=== PATIENT | female | born 1950 | race Caucasian/White ===

== ENCOUNTER 2019-04-25 00:12 | Inpatient (IN) | payer MEDICARE ==
[~2019-04-25] VITALS: Ht 160 cm; Wt 81.5 kg
--- NOTE | ~2019-04-25 | HEMODYNAMI ---
PATIENT:DENISE HUNG MEDICAL RECORD: [id number] : 48 LOCATION:[facility] D213 ADMISSION DATE: 04/25/19 Generatedon:04/26/20197:59 Patient name: DENISE HUNG Patient #: [id number] : 1950 Date of study: 04/26/2019 Page: Of Hemodynamic Procedure Report Patient Data Patient Demographics Procedure consent was obtained First Name: DENISE Gender: Female Last Name: ANABELL : 1950 Patient #: [id number] Age: 69 year(s) Race: SSN: [id number] Additional ID: [id number] Contact details [address]: [address] [place] [address] State: [place] City: [place] Zip code: [address] Past Medical History History of disease Date Diagnosis Comments CAD Allergies Allergen Reaction Date Comments Reported Other allergy 04/26/2019 INFLUENZA VIRUS VACCINES, SHRIMP Admission Admission Data Admission Date: 04/25/2019 Admission Time: 2:01 Arrival Date: 04/25/2019 Arrival Time: 2:01 Admit Source: Other Insurance Payor: Medicare Room #: D.2132 [facility] #: [id number] Height (in.): 62.99 BSA: 1.84 (m2) Height (cm.): 160 BMI: 31.64 (kg/m2) Weight (lbs.): 178.58 Weight (kg.): 81 Lab Results Lab Result Date: 04/25/2019 Lab Result Time: 0:00 Biochemistry Name Units Result Min Max BUN mg/dl 18 --(---*)-- 7 18 Creatinine mg/dl 1 --(--*-)-- 0.6 1.3 eGFR ml/min 58 *-(----)-- 90 120 NONAFRICAN CBC Name Units Result Min Max Hemoglobin g/dl 13.5 --(*---)-- 13.5 17.5 Procedure Procedure Types Cath Procedure Diagnostic Procedure C Coronaries only FFR/IVUS FFR Initial Sedation Charges Moderate Sedation up to 15 minutes PCI Procedure Coronary Stent Coronary Stent Initial x2 Hemochron ACT Test Procedure Description Procedure Date Procedure Date: 04/26/2019 Procedure Start Time: 7:35 Procedure End Time: 7:52 Procedure Staff Name Function Shane Dotson RN Nurse Keon Dangelo MD Performing Physician Laura Gomez RT Scrub Steffany Marr RT Monitor Cathleen Guy RN Armor Senior Sergeant Procedure Data Cath Procedure Fluoroscopy Diagnostic fluoroscopy Total fluoroscopy Time: 3.8 time: 3.8 min min Diagnostic fluoroscopy Total fluoroscopy dose: 291 dose: 291 mGy mGy Contrast Material Contrast Material Type Amount (ml) Isovue 370 58 Entry Location Entry Primary Successful Side Size Upsize Upsize Entry Closure Succes sful Closure Location (Fr) 1 (Fr) 2 (Fr) Remarks Device Remarks Femoral Right 6 Fr Exoseal artery Short Estimated blood loss: 10 ml Diagnostic catheters Device Type Used For End Catheter Placement DIAGNOSTIC JL 4.0 5Fr Procedure catheter ([id number]) Procedure Complications No complications Procedure Medications Medication Administration Route Dosage 0.9% NaCl I.V. 100 ml/hr Oxygen etCO2 Nasal cannula 2 l/min Heparin Flush Bag added to field 2 bags (1000units/500ml NS) Lidocaine 2% added to field 20 Plavix P.O. 75 mg Versed I.V. 1 mg Fentanyl I.V. 50 mcg Versed I.V. 1 mg Fentanyl I.V. 50 mcg Heparin Bolus I.V. 4000 units Hemodynamics Rest BSA: 1.84 (m2) HGB: 13.5 (g/dl) O2 Consumption: Estimated: 182.68 (ml/min) O2 Co nsumption indexed: Estimated:99.28 (ml/min/m) Heart Rate: 89 (bpm) Snapshots Pre Cath Intra NCS Post Cath Vital Signs Time Heart Resp SPO2 etCO2 NIBP (mmHg) Rhythm Pain Sedation Rate (ipm) (%) (mmHg) Status Level (bpm) 7:24:22 88 18 97 0 141/84(113) NSR 0 (11) 10(A) , No pain 7:28:49 86 16 95 22.3 141/83(119) NSR 0 (11) 10(A) , No pain 7:33:15 81 15 92 14.9 135/73(102) NSR 0 (11) 10(A) , No pain 7:37:41 80 15 94 29 131/74(107) NSR 0 (11) 10(A) , No pain 7:42:05 81 14 94 17.9 130/72(105) NSR 0 (11) 9(A) , No pain 7:46:29 83 12 94 9.6 133/75(106) NSR 0 (11) 9(A) , No pain 7:50:52 85 14 98 29.8 133/80(110) NSR 0 (11) 9(A) , No pain 7:59:34 96 29.8 Aborted NSR 0 (11) 9(A) , No pain Medications Time Medication Route Dose Verified Delivered Reason Notes Effectiveness by by 7:29:36 0.9% NaCl I.V. 100 Shane Shane Per physician ml/hr Mauri Dotson RN RN 7:29:45 Oxygen etCO2 2 Shane Shane for low 02 sats Nasal l/min Mauri Dotson cannula RN RN 7:29:57 Heparin Flush added 2 Shane Shane used for Bag to bags [place] Dotson procedure (1000units/500ml RN RN NS) 7:30:06 Lidocaine 2% added 20ml Shane Shane for local to vial Mauri Dotson anesthetic field RN RN 7:30:17 Plavix P.O. 75 mg Shane Shane for [place] Dotson antiplatelet RN RN therapy 7:34:18 Versed I.V. 1 mg Shane Shane for sedation Mauri Dotson RN RN 7:34:28 Fentanyl I.V. 50 Shane Shane for sedation mcg Mauri Dotson RN RN 7:36:57 Versed I.V. 1 mg Shane Shane for sedation Mauri Dotson RN RN 7:37:03 Fentanyl I.V. 50 Shane Shane for sedation mcg Mauri Dotson RN RN 7:39:44 Heparin Bolus I.V. 4000 Shane Shane for units Mauri Dotson anticoagulation RN safety aide Log Time Note 6:58:12 Patient Height : 62.99 inches 6:58:12 Patient Weight : 178.58 lbs 6:58:23 H&P Date Dictated: 04/26/2019 New H&P dictated by physician.. 7:00:27 Risk of Mortality: .1 7:00:32 Risk of blood transfusion: 1.6 7:00:34 Risk of ANICETO: 1.8 7:00:44 Procedure Status Urgent Heart Cath (IP). 7:00:44 Time tracking: Regular hours (M-F 7:00 - 5:00) 7:00:47 Plan of Care:Hemodynamics will remain stable., Cardiac rhythm will remain stable., Comfort level will be maintained., Respiratory function will remain adequate., Patient/ family verbilizes understanding of procedure., Procedure tolerated without complication., Recovers from procedure without complications.. 7:00:48 Signed procedure consent form obtained from patient. 7:01:52 Patient allergic to Other allergyINFLUENZA VIRUS VACCINES, SHRIMP 7:03:57 Stress Test: no; N/A PCI 7:07:10 Shane Dotson RN sent for patient. Start room use. 7:21:12 Patient received from Med II to CCL 1 Alert and oriented. Tansferred to table in Supine position. 7:21:13 Warm blankets applied, and trae hugger turned on for patient comfort. 7:21:14 Correct patient and procedure confirmed by team. 7:21:14 ECG and BP/O2 sat monitors applied to patient. 7:21:27 Vital chart was started 7:21:28 Baseline sample Acquired. 7:21:32 Rhythm: sinus rhythm 7:21:39 Full Disclosure recording started 7:21:47 Pre-op teaching completed and patient verbalized understanding. 7:21:48 Pre-procedure instructions explained to patient. 7:21:53 Family in patients room. 7:21:54 Patient NPO since Midnight. 7:22:19 Is the patient allergic to Iodine/contrast media? No. 7:22:22 Is patient on blood thinner?Yes 7:22:24 ACC The patient was administered the following blood thiners within the last 24 hours: ACCPlavix 7:23:46 Patient diabetic? No. 7:24:00 Previous problem with sedation/anesthesia? No ? 7:24:01 Snore? Yes 7:24:04 Sleep apnea? No 7:24:05 Deviated septum? No 7:24:06 Opens mouth fully? Yes 7:24:08 Sticks out tongue? Yes 7:24:10 Airway obstruction? No ? 7:24:11 Dentures? No ? 7:24:13 Pre procedure: right dorsailis pedis pulse 2+ Normal; easily identifiable; not easily obliterated 7:24:18 Patient pain scale 0/10 ?. 7:24:22 IV patent on arrival in left antecubital with 0.9% NaCl at [facility]. 7:24:27 Lab results completed and on chart. 7:24:30 Right groin area was prepped with chlora-prep and draped in sterile fashion 7:24:31 Alarms reviewed by R. N. 7:24:31 Sharps counted by scrub and verified by R.N. 7:24:36 Use device set CATH PACK 7:24:37 ACIST Syringe (43396) opened to sterile field. 7:24:37 ACIST Hand Control (68792) opened to sterile field. 7:24:38 ACIST Manifold (34297) opened to sterile field. 7:24:38 Medline Cath Pack ([id number]) opened to sterile field. 7:24:38 Bag Decanter (2002S) opened to sterile field. 7:24:39 EMERALD Guide Wire (502-329) opened to sterile field. 7:24:50 SHEATH 6FR [place] (WJS771) opened to sterile field. 7:24:51 INFLATOR Merit BasixCompak (TU5910) opened to sterile field. 7:24:51 CHOICE PT Extra Support 182cm wire ([id number]) opened to sterile field. 7:29:36 0.9% NaCl 100 ml/hr I.V. was administered by Shane Dotson RN; Per physician; Verbal order read back and verified. 7:29:45 Oxygen 2 l/min etCO2 Nasal cannula was administered by Shane Dotson RN; for low 02 sats; Verbal order read back and verified. 7:29:57 Heparin Flush Bag (1000units/500ml NS) 2 bags added to field was administered by Shane Dotson RN; used for procedure; Verbal order read back and verified. 7:30:06 Lidocaine 2% 20ml vial added to field was administered by Shane Dotson RN; for local anesthetic; Verbal order read back and verified. 7:30:17 Plavix 75 mg P.O. was administered by Shane Dotson RN; for antiplatelet therapy; Verbal order read back and verified. 7:30:29 --------ALL STOP TIME OUT------ 7:30:30 Final Timeout: patient, procedure, and site verified with staff and physician. All members of the team are in agreement. 7:30:33 Right groin site verified by team. 7:30:37 Fire Safety Assessment: A--An alcohol-based skin anteseptic being used preoperatively., C--Open oxygen or nitrous oxide is being used., D--An ESU, laser, or fiber-optic light is being used. 7:30:39 Physical assessment completed. ASA score P 2 - A patient with mild systemic disease as per Shane Dotson RN. 7:31:02 3a) 45-59 Moderately reduced kidney function. 7:31:05 Maximum allowable contrast dose (3.7 X eGFR X 0.75)? ml. 7:31:07 Sedation plan: IV Moderate Sedation Medication:Versed, Fentanyl 7:34:18 Versed 1 mg I.V. was administered by Shane Dotson RN; for sedation; Verbal order read back and verified. 7:34:28 Fentanyl 50 mcg I.V. was administered by Shane Dotson RN; for sedation; Verbal order read back and verified. 7:35:14 Procedure started. 7:35:17 Zero performed for pressure channel P1 7:35:33 Zero performed for pressure channel P1 7:35:39 Zero performed for pressure channel P1 7:35:56 Local anesthetic to right femoral artery with Lidocaine 2% by Shane Dotson RN.INITIAL ACCESS ONLY 7:36:13 A 6 Fr Short sheath was inserted into the Right Femoral artery 7:36:44 A DIAGNOSTIC JL 4.0 5Fr catheter ([id number]) was advanced over the wire and used for Procedure. 7:36:54 Procedure type changed to Cath procedure, Diagnostic procedure, LHC, Coronaries only, FFR/IVUS, FFR Initial, Sedation Charges, Moderate Sedation up to 15 minutes, PCI procedure, Coronary Stent, Coronary Stent Initial x2, Hemochron ACT Test 7:36:57 Versed 1 mg I.V. was administered by Shane Dotson RN; for sedation; Verbal order read back and verified. 7:37:03 Fentanyl 50 mcg I.V. was administered by Shane Lorigan RN; for sedation; Verbal order read back and verified. 7:37:28 LCA angiography performed. 7:37:33 Catheter removed. 7:38:15 Pre PCI Site: [place] LAD has 75% stenosis. 7:39:02 GUIDE 6FR XBLAD 3.5 catheter ([id number]) opened to sterile field. 7:39:07 6 Fr XBLAD 3.5 guide catheter was inserted over the wire 7:39:14 CHOICE ES 182 wire advanced. 7:39:16 Wire advanced across lesion. 7:39:44 Heparin Bolus 4000 units I.V. was administered by Shane Dotson RN; for anticoagulation; Verbal order read back and verified. 7:40:34 Place stent Inflation Number: 1 A KADE RX 3.5 x 08 stent ([id number]) was prepped and advanced across the Prox LAD . The stent was deployed at 13 LAUREN for 0:00 (min:sec) . 7:40:36 Stent catheter was removed intact over wire. 7:40:37 Wire removed. 7:40:38 Guide catheter removed. 7:41:10 GUIDE 6FR AR 1.0 catheter ([id number]) opened to sterile field. 7:41:34 Dowling Verrata Plus pressure wire (32727E) opened to sterile field. 7:41:41 6 Fr AR 1 guide catheter was inserted over the wire 7:42:15 FFR/IFR wire advanced. 7:42:15 Wire advanced across lesion. 7:43:08 RCA lesion measured at .48 with IFR 7:43:43 Pre PCI Site: [place] RCA has 70% stenosis. 7:46:00 Place stent Inflation Number: 1 A KADE RX 3.0 x 18 stent ([id number]) was prepped and advanced across the Prox RCA . The stent was deployed at 13 LAUREN for 0:00 (min:sec) . 7:46:46 Stent catheter was removed intact over wire. 7:46:47 Wire removed. 7:46:47 Guide catheter removed. 7:47:17 EXOSEAL 6Fr (EX600) opened to sterile field. 7:47:30 Sheath removed intact; hemostasis achieved with Exoseal to the Right Femoral artery. 7:48:18 Procedure ended.(Physican Out) 7:48:29 Fluoroscopy time 03.80 minutes. 7:48:36 Flurop Dose total: 291 7:48:36 Fluoroscopy dose: 291 mGy 7:48:40 Dose Area Product 71792 mGy/cm. 7:48:46 Contrast amount:Isovue 370 58ml. 7:48:49 Maximum allowable dose exceeded? No. 7:48:50 Sharps counted by scrub and verified by R.N. 7:48:55 Post-op/insertion site Right Femoral artery dressed using a 4 x 4 and Tegaderm. 7:48:59 Post-procedure physical assessment completed. ASA score P 2 - A patient with mild systemic disease as per Keon Dangelo MD. 7:49:07 Post procedure rhythm: unchanged. 7:49:08 Estimated blood loss: 10 ml 7:50:02 Post procedure instruction explained to patient.Patient verbalizes understanding. 7:50:03 Patient needs reinforcement of post procedure teaching. 7:51:58 Procedure and supply charges have been captured, reviewed, submitted and are correct. 7:52:02 Procedure Complication : No complications 7:52:04 Vital chart was stopped 7:52:05 [facility] Findings: MVD- PCI performed (see procedure note) 7:52:06 Operative report dictated upon procedure completion. 7:52:07 See physician's report for complete and final results. 7:52:08 Report given to Med II. 7:52:11 Patient transfered to Med II with Bed. 7:52:12 ACT drawn and resulted at (High) out of range seconds. (normal therapeutic range 180-240 seconds). 7:52:13 Procedure ended. 7:52:13 Full Disclosure recording stopped 7:52:21 ACC-PCI Only Patient was given prescriptions, or instructed by Keon Dangelo MD to start/continue the following medications upon discharge: Plavix 7:53:51 End room use (Document Last) 7:54:42 End room use (Document Last) 7:55:23 End room use (Document Last) Intervention Summary Intervention Notes Time ActionType Lesion and Equipment Used Action# Pressure Duration Attributes 7:40:34 Place stent Prox LAD KADE RX 3.5 x 1 13 00:00 08 stent ([id number]) 7:46:00 Place stent Prox RCA KADE RX 3.0 x 1 13 00:00 18 stent ([id number]) Device Usage Item Name Manufacture Quantity Catalog Number Hospital Part Current Minimal Lot# / Charge Number Stock Stock Serial# Code ACIST Syringe Acist 1 06772 267319 023387 236209 20 (68016) Medical Systems Inc ACIST Hand Acist 1 39080 272663 292069 785108 5 Control Medical (08321) Systems Inc ACIST Manifold Acist 1 61493 232209 730857 158811 5 (24477) Medical Systems Inc Medline Cath Medline 1 [id number] 640672 92918 347394 5 Pack ([id number]) Bag Decanter Microtek 1 594399 52698 164994 5 () Medical Inc. EMERALD Guide Cardinal 1 502-455 727509 593989 429477 5 Wire (502-455) Health SHEATH 6FR Terumo 1 HEK581 836552 397598 357066 40 [place] (OCO365) INFLATOR Merit Merit 1 PY6988 173254 709029 466870 15 [employer] Power GroupLogan Regional HospitalDailyDeal (MY8033) CHOICE PT [place] 1 [id number] 315446 868719 530758 5 Extra Support Scientific 182cm wire ([id number]) DIAGNOSTIC JL Cardinal 1 [id number] 040981 548559 481254 10 4.0 5Fr Health catheter (647450J) GUIDE 6FR Cardinal 1 [id number] 733958 273061 509913 10 XBLAD 3.5 Health catheter (41337684) KADE RX 3.5 x Medtronic 1 [id number] 424786 9354007 162430 5 [id number] 08 stent ([id number]) GUIDE 6FR AR Medtronic 1 [id number] 229505 58714 811312 1 1.0 catheter (MP1WR15) Dowling Dowling 1 01784E 723729 528591562 415489 5 Verrata Plus pressure wire (64949U) KADE RX 3.0 x Medtronic 1 [id number] 452909 2649746 696781 5 [id number] 18 stent ([id number]) EXOSEAL 6Fr Cardinal 1 EX600 486939 598332 348191 10 (EX600) Health Signature Audit [place] Switch Stage Time Signature Unsigned Intra-Procedure 04/26/2019 Steffany Marr 7:54:42 AM RT(R) Intra-Procedure 04/26/2019 Shane 7:55:23 AM Mauri LARA Intra-Procedure 04/26/2019 Keon Dangelo 7:59:42 AM [id number] [place] [address]
--- NOTE | ~2019-04-25 | HEMODYNAMI ---
PATIENT:DENISE HUNG MEDICAL RECORD: [id number] : 48 LOCATION:[facility] D.2132 ADMISSION DATE: 04/25/19 Generatedon:04/25/20199:41 Patient name: DENISE HUNG Patient #: [id number] : 1950 Date of study: 04/25/2019 Page: Of Hemodynamic Procedure Report Patient Data Patient Demographics Procedure consent was obtained First Name: DENISE Gender: Female Last Name: ANABELL : 1950 Patient #: [id number] Age: 69 year(s) Race: SSN: [id number] Additional ID: [id number] Contact details Address: [address] [place] [address] State: [place] City: [place] Zip code: [address] Admission Admission Data Admission Date: 04/25/2019 Admission Time: 2:01 Arrival Date: 04/25/2019 Arrival Time: 2:01 Admit Source: Other Insurance Payor: Medicare Room #: D.2132 [facility] #: [id number] Height (in.): 62.99 BSA: 1.84 (m2) Height (cm.): 160 BMI: 31.64 (kg/m2) Weight (lbs.): 178.58 Weight (kg.): 81 Lab Results Lab Result Date: 04/25/2019 Lab Result Time: 0:00 Biochemistry Name Units Result Min Max BUN mg/dl 18 --(---*)-- 7 18 Creatinine mg/dl 1 --(--*-)-- 0.6 1.3 eGFR ml/min 58 *-(----)-- 90 120 NONAFRICAN CBC Name Units Result Min Max Hemoglobin g/dl 13.5 --(*---)-- 13.5 17.5 Procedure Procedure Types Cath Procedure Diagnostic Procedure LHC LH w/Coronaries FFR/IVUS FFR Initial Sedation Charges Moderate Sedation up to 30 minutes PCI Procedure Coronary Stent Coronary Stent Initial Hemochron ACT Test Procedure Description Procedure Date Procedure Date: 04/25/2019 Procedure Start Time: 9:10 Procedure Staff Name Function Guadalupe Bello RT Monitor Ketan Traore RN Car Refinisher Keon Dangelo MD Performing Physician Kimber Clay RT Scrub Procedure Data Cath Procedure Fluoroscopy Diagnostic fluoroscopy Total fluoroscopy Time: 2.4 time: 2.4 min min Diagnostic fluoroscopy Total fluoroscopy dose: 350 dose: 350 mGy mGy Contrast Material Contrast Material Type Amount (ml) Isovue 300 51 Entry Location Entry Primary Successful Side Size Upsize Upsize Entry Closure [place] ccessful Closure Location (Fr) 1 (Fr) 2 (Fr) Remarks Device Remarks Radial Right 6 Fr Mechanical artery Short Compression Estimated blood loss: 5 ml Diagnostic catheters Device Type Used For End Catheter Placement DIAGNOSTIC [place] 110cm 5 Multi-vessel Fr catheter ([id number]) Angiography Procedure Complications No complications Procedure Medications Medication Administration Route Dosage Oxygen etCO2 Nasal cannula 2 l/min Lidocaine 2% added to field 20 Heparin Flush Bag added to field 2 bags (1000units/500ml NS) 0.9% NaCl I.V. 100 ml/hr Radial Cocktail I.A. 1 syringe (Verapamil 2mg/Nitro 400mcg/Heparin 1500units) Versed I.V. 1 mg Fentanyl I.V. 50 mcg Versed I.V. 1 mg Fentanyl I.V. 50 mcg Heparin Bolus I.V. 4000 units Integrilin (Bolus I.V. 7.3 ml 2mg/ml) Versed I.V. 1 mg Plavix P.O. 600 mg Hemodynamics Rest BSA: 1.84 (m2) HGB: 13.5 (g/dl) O2 Consumption: Estimated: 179.21 (ml/min) O2 Co nsumption indexed: Estimated:97.4 (ml/min/m) Heart Rate: 84 (bpm) Pressure Samples Time Site Value (mmHg) Purpose Heart Use Rate(bpm) 9:12 LV 79/3,6 Snapshot 52 Snapshots Pre Cath Intra NCS Post Cath Vital Signs Time Heart Resp SPO2 etCO2 NIBP (mmHg) Rhythm Pain Sedation Rate (ipm) (%) (mmHg) Status Level (bpm) 8:57:40 81 14 94 34.8 147/85(120) NSR 0 (11) 10(A) , No pain 9:02:19 79 16 94 37 156/87(121) NSR 0 (11) 10(A) , No pain 9:06:31 80 13 93 36.3 149/83(112) NSR 0 (11) 10(A) , No pain 9:10:36 81 14 95 0 148/89(108) NSR 0 (11) 9(A) , No pain 9:14:46 85 13 96 13.3 136/80(105) NSR 0 (11) 9(A) , No pain 9:18:52 84 12 94 28.2 143/78(98) NSR 0 (11) 9(A) , No pain 9:23:55 88 15 97 17.8 164/100(127) NSR 0 (11) 9(A) , No pain 9:28:05 86 13 95 11.8 165/96(120) NSR 0 (11) 10(A) , No pain 9:32:15 85 13 95 0.7 164/100(126) NSR 0 (11) 10(A) , No pain Medications Time Medication Route Dose Verified Delivered Reason Note s Effectiveness by by 8:57:28 Oxygen etCO2 2 l/min Keon Buffie used for Nasal Loreto Traore RN procedure cannula 8:57:58 Lidocaine 2% added 20ml Keon Keon for local to vial Loreto Dangelo MD anesthetic field 8:58:31 Heparin Flush added 2 bags Keonroberto carlos Herbert used for Bag to Loreto Dangelo MD procedure (1000units/500ml field NS) 8:58:45 0.9% NaCl I.V. 100 Keon Buffie Per physician ml/hr Loreto Traore RN 9:08:46 Versed I.V. 1 mg Keon Buffie for sedation Loreto Traore RN 9:08:52 Fentanyl I.V. 50 mcg Keon Buffie for sedation Loreto Traore RN 9:11:45 Radial Cocktail I.A. 1 Keon Buffie for (Verapamil syringe Loreto Traore RN vasodilation 2mg/Nitro 400mcg/Hepari 9:12:39 Versed I.V. 1 mg Keon Buffie for sedation Loreto Traore RN 9:12:42 Fentanyl I.V. 50 mcg Keon Loaizaie for sedation Loreto Traore RN 9:15:30 Heparin Bolus I.V. 4000 Keon Buffie for veri fied units Loreto Traore RN anticoagulation with dr dangelo 9:18:03 Integrilin I.V. 7.3 ml Keon Aceves for wast ed (Bolus 2mg/ml) Loreto Traore RN antiplatelet 2.7 ml therapy of vial 9:23:14 Versed I.V. 1 mg Keon Aceves for sedation Loreto Traore RN 9:35:02 Plavix P.O. 600 mg Keon Aceves for Loreto Traore RN antiplatelet therapy Procedure Log Time Note 8:24:54 Diagnostic Cath Status : Urgent 8:26:10 Informed consent obtained and on chart 8:29:07 Arrival Date: 04/25/2019 2:01:00 AM 8:30:30 Admit Source: Other 8:30:33 Insurance Payor : Medicare 8:30:52 Patient Height : 62.99 inches 8:30:56 Patient Weight : 178.58 lbs 8:31:58 Lab Result : eGFR NONAFRICAN 58 ml/min 8:31:58 Lab Result : Hemoglobin 13.5 g/dl 8:31:58 Lab Result : BUN 18 mg/dl 8:31:58 Lab Result : Creatinine 1 mg/dl 8:32:19 Procedure Status Urgent Heart Cath (IP). 8:32:25 Kimber LUDWIG(R) sent for patient. Start room use. 8:32:30 Plan of Care:Hemodynamics will remain stable., Cardiac rhythm will remain stable., Comfort level will be maintained., Respiratory function will remain adequate., Patient/ family verbilizes understanding of procedure., Procedure tolerated without complication., Recovers from procedure without complications.. 8:45:26 Patient received from Med II to CCL 2 Alert and oriented. Tansferred to table in Supine position. 8:45:27 Correct patient and procedure confirmed by team. 8:45:27 Warm blankets applied, and trae hugger turned on for patient comfort. 8:45:28 ECG and BP/O2 sat monitors applied to patient. 8:56:33 Vital chart was started 8:56:35 Baseline sample Acquired. 8:56:39 Rhythm: sinus tachycardia 8:56:41 Full Disclosure recording started 8:56:49 H&P Date Dictated: 04/25/2019 New H&P dictated by physician.. 8:56:51 Pre-op teaching completed and patient verbalized understanding. 8:56:51 Pre-procedure instructions explained to patient. 8:56:53 Family in waiting room. 8:56:54 Patient NPO since Midnight. 8:56:57 Is the patient allergic to Iodine/contrast media? No. 8:56:58 Was the patient premedicated? Yes 8:56:59 Is patient on blood thinner?No 8:57:00 Patient diabetic? No. 8:57:02 Previous problem with sedation/anesthesia? No ? 8:57:04 Snore? Yes 8:57:05 Sleep apnea? No 8:57:06 Deviated septum? No 8:57:07 Opens mouth fully? Yes 8:57:08 Sticks out tongue? Yes 8:57:11 Airway obstruction? No ? 8:57:15 Dentures? No ? 8:57:22 Pre procedure: right dorsailis pedis pulse 2+ Normal; easily identifiable; not easily obliterated 8:57:25 Pre procedure: left dorsailis pedis pulse 2+ Normal; easily identifiable; not easily obliterated 8:57:27 Patient pain scale 7/10 ?. 8:57:28 Oxygen 2 l/min etCO2 Nasal cannula was administered by Ketan Traore RN; used for procedure; Verbal order read back and verified. 8:57:45 IV patent on arrival in left antecubital with 0.9% NaCl at [facility]. 8:57:48 Lab results completed and on chart. 8:57:52 Stress Test: no; N/A ? 8:57:55 Risk of Mortality: 0.1 8:57:58 Risk of blood transfusion: 1.6 8:57:58 Lidocaine 2% 20ml vial added to field was administered by Keon Dangelo MD; for local anesthetic; Verbal order read back and verified. 8:58:10 Risk of ANICETO: 1.8 8:58:15 Right Radial & Right Groin area was prepped with chlora-prep and draped in sterile fashion 8:58:16 Alarms reviewed by R. N. 8:58:17 Sharps counted by scrub and verified by R.N. 8:58:27 3a) 45-59 Moderately reduced kidney function. 8:58:31 Heparin Flush Bag (1000units/500ml NS) 2 bags added to field was administered by Keon Dangelo MD; used for procedure; Verbal order read back and verified. 8:58:45 0.9% NaCl 100 ml/hr I.V. was administered by Ketan Traore RN; Per physician; Verbal order read back and verified. 8:58:56 Maximum allowable contrast dose (3.7 X eGFR X 0.75)160 ml. 9:07:22 Physician arrived 9:07:23 --------ALL STOP TIME OUT------ 9:07:24 Final Timeout: patient, procedure, and site verified with staff and physician. All members of the team are in agreement. 9:07:26 Right Radial & Right Groin site verified by team. 9:07:29 Fire Safety Assessment: A--An alcohol-based skin anteseptic being used preoperatively., C--Open oxygen or nitrous oxide is being used., D--An ESU, laser, or fiber-optic light is being used. 9:07:32 Physical assessment completed. ASA score P 2 - A patient with mild systemic disease as per Keon Dangelo MD. 9:07:35 Sedation plan: IV Moderate Sedation Medication:Versed, Fentanyl 9:07:42 Use device set Radial Dx or PCI 9:07:44 Medline Cath Pack ([id number]) opened to sterile field. 9:07:44 ACIST Syringe (21263) opened to sterile field. 9:07:45 ACIST Hand Control (80587) opened to sterile field. 9:07:45 Bag Decanter (2001S) opened to sterile field. 9:07:46 Tegaderm 4 x 4 (1626W) opened to sterile field. 9:07:46 ACIST Manifold (94343) opened to sterile field. 9:07:47 MBrace Wrist Support ([id number]) opened to sterile field. 9:07:50 SHEATH 6FR RAIN (8083768) opened to sterile field. 9:07:51 EMERALD Guide Wire (401-327) opened to sterile field. 9:08:46 Versed 1 mg I.V. was administered by Ketan Traore RN; for sedation; Verbal order read back and verified. 9:08:52 Fentanyl 50 mcg I.V. was administered by Ketan Traore RN; for sedation; Verbal order read back and verified. 9:10:51 Procedure started. 9:10:55 Local anesthetic to right radial artery with Lidocaine 2% by Keon Dangelo MD.INITIAL ACCESS ONLY 9:11:03 A 6 Fr Short sheath was inserted into the Right Radial artery 9:11:19 A DIAGNOSTIC [place] 110cm 5 Fr catheter (646367) was advanced over the wire and used for Multi-vessel Angiography. 9:11:45 Radial Cocktail (Verapamil 2mg/Nitro 400mcg/Heparin 1500units) 1 syringe I.A. was administered by Ketan Traore RN; for vasodilation; Verbal order read back and verified. 9:12:17 LV hemodynamics recorded. 9:12:18 LV gram done using ZAVALA 9:12:21 Injector settings: Ml/sec: 5, Volume: 15, 9:12:27 EF : 60 % 9:12:32 RCA angiography performed. 9:12:35 Injector settings: Ml/sec: 3, Volume: 6, 9:12:39 Versed 1 mg I.V. was administered by Ketan Traore RN; for sedation; Verbal order read back and verified. 9:12:42 Fentanyl 50 mcg I.V. was administered by Ketan Traore RN; for sedation; Verbal order read back and verified. 9:14:03 Catheter removed. 9:14:10 GUIDE 6FR XBC 3 ([id number]) opened to sterile field. 9:14:18 LCA angiography performed. 9:14:21 Injector settings: Ml/sec: 3, Volume: 6, 9:14:48 INFLATOR Merit BasixCompak (KP9482) opened to sterile field. 9:14:49 ACCDominant side:Right 9:14:49 [place] Verrata Plus pressure wire (26114S) opened to sterile field. 9:15:10 Proceeding to intervention. 9:15:18 FFR/IFR wire advanced. 9:15:20 Baseline FFR 1. 9:15:30 Heparin Bolus 4000 units I.V. was administered by Ketan Traore RN; for anticoagulation; verified with dr dangelo Verbal order read back and verified. 9:15:49 GUIDE 6FR AR 2.0 catheter ([id number]) opened to sterile field. 9:16:42 Wire advanced across lesion. 9:17:38 pLAD lesion measured at 0.87 with IFR 9:17:55 ACC Pre-intervention JC Flow is 3. 9:18:01 Pre PCI Site: [place] pLAD has 80% stenosis. 9:18:03 Integrilin (Bolus 2mg/ml) 7.3 ml I.V. was administered by Ketan Traore RN; for antiplatelet therapy; wasted 2.7 ml of vial Verbal order read back and verified. 9:19:28 Place stent Inflation Number: 1 A KADE RX 2.75 x 18 stent ([id number]) was prepped and advanced across the Prox LAD 80. The stent was deployed at 15 LAUREN for 0:10 (min:sec) 0. 9:23:14 Versed 1 mg I.V. was administered by Ketan Tarore RN; for sedation; Verbal order read back and verified. 9:23:35 Wire removed. 9:23:35 Stent catheter was removed intact over wire. 9:23:36 Guide catheter removed. 9:24:31 Malfuntion with fluoroscopy; attempting to reboot room 9:24:58 ACT drawn and resulted at 233 seconds. (normal therapeutic range 180-240 seconds). 9:33:26 Full Disclosure recording stopped 9:35:02 Plavix 600 mg P.O. was administered by Ketan Traore RN; for antiplatelet therapy; Verbal order read back and verified. 9:35:55 ACC Post-intervention JC Flow is 3. 9:36:00 Post PCI Site: [place] pLAD has 0% stenosis. 9:36:34 ZEPHYR REGULAR TR BAND (679341) opened to sterile field. 9:36:43 Sheath removed intact; hemostasis achieved with Mechanical Compression to the Right Radial artery. 9:36:45 Procedure ended.(Physican Out) 9:37:09 Fluoroscopy time 02.40 minutes. 9:37:14 Fluoroscopy dose: 350 mGy 9:37:14 Flurop Dose total: 350 9:37:19 Dose Area Product 15304 mGy/cm. 9:37:23 Contrast amount:Isovue 300 51ml. 9:37:34 Maximum allowable dose exceeded? No. 9:37:35 Sharps counted by scrub and verified by R.N. 9:37:38 [place] band inflated with 10cc of air. 9:37:39 Insertion/operative site no bleeding no hematoma. 9:37:44 Post right radial artery:stable 9:37:45 Post Procedure Pulses reassessed and unchanged 9:37:47 Post procedure rhythm: unchanged. 9:37:50 Estimated blood loss: 5 ml 9:37:52 Post procedure instruction explained to patient.Patient verbalizes understanding. 9:37:52 Patient needs reinforcement of post procedure teaching. 9:38:44 Procedure type changed to Cath procedure, Diagnostic procedure, LHC, C w/Coronaries, FFR/IVUS, FFR Initial, Sedation Charges, Moderate Sedation up to 30 minutes, PCI procedure, Coronary Stent, Coronary Stent Initial, Hemochron ACT Test 9:38:45 Procedure and supply charges have been captured, reviewed, submitted and are correct. 9:38:49 Procedure Complication : No complications 9:38:54 [facility] Findings: MVD- PCI performed (see procedure note) 9:38:56 Operative report dictated upon procedure completion. 9:38:56 See physician's report for complete and final results. 9:38:58 Report given to Pre/Post Procedure Room. 9:39:01 Patient transfered to Pre/Post Procedure Room with Stretcher. 9:39:17 ACC-PCI Only Patient was given prescriptions, or instructed by Keon Dangelo MD to start/continue the following medications upon discharge: Plavix 9:39:18 End room use (Document Last) 9:40:50 End room use (Document Last) 9:41:32 End room use (Document Last) Intervention Summary Intervention Notes Time ActionType Lesion and Equipment Used Action# Pressure Duration Attributes 9:19:28 Place stent Prox LAD KADE RX 2.75 x 1 15 00:10 18 stent ([id number]) Device Usage Item Name Manufacture Quantity Catalog Hospital Part Current Minimal Lot# / Number Charge Number Stock Stock Serial# Code ACIST Syringe Acist 1 72352 207053 931635 504672 20 (76434) Medical Systems Inc Medline Cath Medline 1 [id number] 548942 50735 954890 5 Pack ([id number]) Bag Decanter Microtek 1 689032 87249 050406 5 () Medical Inc. ACIST Hand Acist 1 05996 379610 725215 147976 5 Control Medical (56904) Systems Inc ACIST Manifold Acist 1 72765 311399 011313 271559 5 (12323) Medical Systems Inc Tegaderm 4 x 4 3M 1 1626W 370315 774928 311992 5 (1626W) MBrace Wrist Advanced 1 140-0250-00 867078 11859 948932 5 Support Vascular (866087042) Dynamics SHEATH 6FR Cardinal 1 2797192 382203 9599133 912162 5 RAIN (3426034) Health EMERALD Guide Cardinal 1 502455 472136 953588 339587 5 Wire (845-437) Health DIAGNOSTIC Terumo 1 40-5013 134894 703070 858849 5 [place] 110cm 5 Fr catheter (042897) GUIDE 6FR XBC Cardinal 1 [id number] 015503 06939 430419 5 3 (01222175) Health INFLATOR Merit Merit 1 WU4987 777852 826025 101873 [facility] Medical (VQ3381) [place] 1 23368J 132463 562560097 459832 5 Verrata Plus pressure wire (06558J) GUIDE 6FR AR Medtronic 1 [id number] 149419 55345 045117 1 2.0 catheter (DW2RN55) KADE RX 2.75 x Medtronic 1 [id number] 079878 9827847 539611 5 [id number] 18 stent ([id number]) ZEPHYR REGULAR Cardinal 1 333630 369136 8811668 220505 5 TR [facility] Ingenium Golf (236628) Signature Audit [place] Stage Time Signature Unsigned Intra-Procedure 04/25/2019 Guadalupe Monsalve 9:40:50 AM RT(R) Intra-Procedure 04/25/2019 Ketan Traore RN 9:41:32 AM Intra-Procedure 04/25/2019 Keon Dangelo 9:41:47 AM Signatures Monitor : Guadalupe Monsalve RT Signature : Date : Time : Performing Physician : Signature : Keon Dangelo MD Date : Time : [address] [place] [address]
[2019-04-25 00:34] LABS: BASOPHILS 0.1 % (0-2); HEMATOCRIT 40.7 % (36.0-48.0); HEMOGLOBIN 13.5 g/dL (12-16); IMMATURE GRANULOCYTES 0.7 % (0-5); LYMPHOCYTES 21.9 % (15-50); MCH 29.5 pg (26.0-34.0); MCHC 33.2 g/dL (31.0-37.0); MCV 88.9 fL (80.0-100.0); MEAN PLATELET VOLUME 10.5 fL (7.4-10.4); MONOCYTES 9.3 % (2-11); PLATELET COUNT 220 10x3/uL (130-400); RBC 4.58 10x6/uL (4.00-5.40); RDW 12.4 % (11.5-14.5); WBC 7.3 10x3/uL (4.8-10.8)
[2019-04-25 00:43] LABS: CALC OSMOLALITY 276 mosm/kg (275-300); CALCIUM 8.9 mg/dL (8.5-10.1); CHLORIDE - SERUM 99 mmol/L (98-107); GLUCOSE 187 mg/dL (74-106); POTASSIUM - SERUM 3.9 mmol/L (3.5-5.1); SODIUM 135 mmol/L (136-145); UREA NITROGEN 18 mg/dL (7-18); eGFR NON AFRICAN AMERICAN 58 mL/min (90-120)
[2019-04-25 00:51] LABS: INR 1.01 (0.85-1.17); PROTIME 13.2 SECONDS (11.6-15.0)
[2019-04-25 00:52] LABS: APTT 36.3 SECONDS (22.8-39.4)
[2019-04-25 01:05] LABS: ALBUMIN 3.2 g/dL (3.4-5.0); ALKALINE PHOSPHATASE 103 U/L (30-120); ALT (SGPT) 30 U/L (10-68); BILIRUBIN - TOTAL 0.51 mg/dL (0.2-1.3); CKMB 66.3 U/L (0.0-3.6); CREATINE KINASE 400 UL (21-215); MAGNESIUM - SERUM 1.8 mg/dL (1.8-2.4); PRO BNP 305 pg/mL (0-125); PROTEIN - SERUM 7.3 g/dL (6.4-8.2)
[2019-04-25 01:06] LABS: TROPONIN-I 6.225 ng/mL (0.000-0.060)
--- NOTE | 2019-04-25 02:50 | NUR ---
TO BED AMBLITORY FROM STRETCHER BED LOW AND LOCKED CALL LIGHT PROVIDED AND OTHER NEEDS SEEN TO
--- NOTE | 2019-04-25 04:53 | NUR ---
ADMISSION ASSESSMENT COMPLETED.
[2019-04-25 07:05] LABS: CKMB 110.1 U/L (0.0-3.6)
[2019-04-25 07:10] LABS: CREATINE KINASE 624 UL (21-215); TROPONIN-I 12.338 ng/mL (0.000-0.060)
--- NOTE | 2019-04-25 08:17 | NUR ---
STEROIDS GIVEN ORDERED, CONSENTS SINGED AND PLACED ON CHART. PRE-OP MEDS GIVEN AT THIS TIME. PT DENIES ANY NEEDS AT THIS TIME. A/O X4, RESP EVEN AND NONLABORED ON RA. STILL C/O PAIN TO LT ARM. CALL LIGHT IN REACH, FAMILY AT BEDSIDE, NAD NOTED, WILL CONTINUE TO MONITOR.
--- NOTE | 2019-04-25 08:47 | NUR ---
PT TO [facility]ER.
--- NOTE | 2019-04-25 09:27 | HP ---
PATIENT: DENISE HUNG MEDICAL RECORD: [id number] ACCOUNT: [id number] LOCATION:[address] : [birth year] ADMISSION DATE: 04/25/19 PCP: No PCP HISTORY AND PHYSICAL EXAMINATION ADMITTING DIAGNOSES: 1. Acute non-Q-wave myocardial infarction. 2. Coronary artery disease. 3. Shortness of breath, dyspnea on exertion. HISTORY OF PRESENT ILLNESS: Ms. Hung presents with acute onset of chest discomfort that started yesterday when she was at synagogue. It worsened yesterday afternoon and she became very short of breath and diaphoretic. Her troponin is 12. She continues to have left arm pain and mild chest pain. PHYSICAL EXAMINATION: CONSTITUTIONAL/GENERAL APPEARANCE: Well nourished, well developed, appears stated age. EYES: Lids and conjunctivae noninjected. No discharge. No pallor. ENT: Lips within normal limit. No cyanosis. No pallor. NECK: Carotid arteries, bilateral normal upstroke. No bruits. No thrills. No jugular venous pressure or distention. CERVICAL LYMPH NODES: Nontender. Nonenlarged. THYROID: Not enlarged. No nodules. CARDIOVASCULAR: Precordial exam, nondisplaced. No heaves or pericardial thrills. Rate and rhythm, regular. Heart sounds, normal S1, normal S2. No S3, no gallop, no rub. Systolic murmur, not heard. Diastolic murmur, not heard. RESPIRATORY: Respiratory effort, unlabored. Normal curvature. No thoracic deformity. No chest wall tenderness. Percussion, resonant. Auscultation, clear. No wheezes, no rales, no rhonchi. ABDOMEN: Soft, nondistended, nontender. No abdominal pain, no vomiting and normal appetite. MUSCULOSKELETAL: No joint tenderness, normal gait, normal tone. SKIN: Warm and dry. OVERALL IMPRESSION: Non-Q-wave myocardial infarction with continued pain. Troponin is 12. We will proceed with coronary angiography. SHE DOES HAVE A SHRIMP ALLERGY. We will premedicate. Further care depends on findings of the angiography. TRANSINT:[id number] Voice Confirmation ID: [id number] DOCUMENT ID: [id number] LEYLA BARBOSA MD at 0927 CC: [id number] DICTATION DATE: 04/25/19 08 FLOOR PERSON: 04/25/19 0813 ADM IN [facility] [address] [id number]
--- NOTE | 2019-04-25 10:02 | NUR ---
RECEIVED PT BACK TO ROOM 2131 VIA BED, PT DROWSY BUY EASILY AROUSES TO VOICE. VITAL SIGNS STABLE, PLACED PT ON FREQUENT VITAL SIGNS. Z BAND TO RT WRIST NO S/S OF BLEEDING OR HEMATOMA. PT DENIES ANY NEEDS AT THIS TIME. CALL LIGHT IN REACH, NAD NOTED, WILL CONTINUE TO MONITOR.
--- NOTE | 2019-04-25 10:25 | NUR ---
NO FLU SHOT UPON ADMIT, WHILE RE-VIEWING HER CHART SHE HAS AN ALLERGY TO THEM.
--- NOTE | 2019-04-25 11:09 | NUR ---
2MG OF MORPHIEN GIVEN FOR PAIN LEVEL OF 8/10. HELPED PT TO BATHROOM AND BACK TO BED. PT DENIES ANY OTHER NEEDS AT THIS TIME. CALL LIGHT IN REACH, FAMILY AT BEDSIDE, NAD NOTED, WILL CONTINUE TO MONITOR.
[2019-04-25 13:02] LABS: CKMB 40.8 U/L (0.0-3.6); CREATINE KINASE 643 UL (21-215)
[2019-04-25 13:05] LABS: TROPONIN-I 11.374 ng/mL (0.000-0.060)
--- NOTE | 2019-04-25 14:14 | MORECARE ---
CASE MANAGEMENT DISCHARGE SUMMARY PATIENT: DENISE HUNG UNIT: [id number] ADM DATE: 04/25/19 AGE: 69 : 49 SEX: F ROOM/BED: D.2132 AUTHOR: JEANINE STARK PHYSICIAN: REFERRING PHYSICIAN: LEYLA BARBOSA MD DATE OF SERVICE: 04/25/19 Discharge Plan Patient Name: DENISE HUNG Facility: [facility]:[place] : 1950 Planned Disposition: Home Anticipated Discharge Date: 04/26/19 Discharge Date: Expected LOS: 1 Initial Reviewer: [email or web address] Initial Review Date: 04/25/2019 Generated: 04/25/19 3:13 pm Patient Name: DENISE HUNG Page [id number] at 1414 All edits/amendments must be made on the electronic document DICTATION DATE: 04/25/19 1413 SKOOG OPERATOR: JAZMYNE 04/25/19 1413 RPT#: [id number] DC DATE: STATUS: ADM IN [facility] [address] [place] [address] END OF REPORT
--- NOTE | 2019-04-25 14:19 | NUR ---
2CC OF AIR REMOVED FROM Z BAND, NO BLEEDING NOTED. WILL CONTINUE TO MONITOR.
--- NOTE | 2019-04-25 14:23 | MORECARE ---
CASE MANAGEMENT DISCHARGE SUMMARY PATIENT: DENISE HUNG UNIT: [id number] ADM DATE: 04/25/19 AGE: 69 : 49 SEX: F ROOM/BED: D.2132 AUTHOR: LINCOLN,DOC PHYSICIAN: REFERRING PHYSICIAN: LEYLA BARBOSA MD DATE OF SERVICE: 04/25/19 Discharge Plan Patient Name: DENISE HUNG Facility: [facility]:[place] : 1950 Planned Disposition: Home Anticipated Discharge Date: 04/26/19 Discharge Date: Expected LOS: 1 Initial Reviewer: [email or web address] Initial Review Date: 04/25/2019 Generated: 04/25/19 3:22 pm Comments DCP- Discharge Planning Updated by [email or web address]: Martín Loomis on 04/25/19 1:[address] Patient Name: DENISE HUNG Admission Status: ER Accout number: [id number] Admission Date: 04-25-2019 : 1950 Admission Diagnosis: Attending: BROOKE BARBOSA Current LOS: 1 Anticipated DC Date: 04-26-2019 Planned Disposition: Home Primary Insurance: [employer] [facility] PF Discharge Planning Comments: CM MET WITH PT IN ROOM TO DISCUSS DISCHARGE PLANNING AND NEEDS. PT REPORTS LIVING AT HOME INDEPENDENTLY WITH HER SPOUSE. PT HAS NO MEDICAL EQUIPMENT AND NO OUTSIDE SERVICES ASSISTING IN THE HOME. CM DISCUSSED AVAILABILITY OF HOME HEALTH, REHAB SERVICES AND MEDICAL EQUIPMENT. PT DENIES DISCHARGE NEEDS, REPORTS HER SPOUSE WILL PICK HER UP FOR DISCHARGE HOME. PT PLANS TO DISCHARGE HOME WITH NO ANTICIPATED DISCHARGE NEEDS. CM TO FOLLOW AND ASSIST NEEDED. Associate Financial Representative: Martín Loomis DCPIA - Discharge Planning Initial Assessment Updated by [email or web address]: Martín Loomis on 04/25/19 2:14 pm * Is the patient Alert and Oriented? Yes * How many steps to enter\exit or inside your home? * PCP YOLANDA SHARIF * Pharmacy [facility] IN [place] * Preadmission Environment Home with Family * ADLs Independent * Equipment None * Other Equipment [facility] - PROVIDER PREFERENCE * List name and contact numbers for known caregivers / representatives who currently or will assist patient after discharge: SUNITHA HUNG, SPOUSE, * Verbal permission to speak to the caregivers and representatives has been obtained from the patient. Yes * Community resources currently utilized None * Please name any agencies selected above. NONE * Additional services required to return to the preadmission environment? No * Can the patient safely return to the preadmission environment? Yes * Has this patient been hospitalized within the prior 30 days at any hospital? No Last DP export: 04/25/19 1:13 p Patient Name: DENISE HUNG Page 40543 at 1423 All edits/amendments must be made on the electronic document DICTATION DATE: 04/25/19 142 FORMING ACID DUMPER: JAZMYNE 04/25/19 1423 RPT#: [id number] DC DATE: STATUS: ADM IN [facility] [address] [place] [address] END OF REPORT
[2019-04-25 15:30] VITALS: Ht 160 cm; Wt 81.5 kg
[2019-04-25 19:09] LABS: CKMB 67.3 U/L (0.0-3.6); CREATINE KINASE 438 UL (21-215); TROPONIN-I 7.248 ng/mL (0.000-0.060)
--- NOTE | 2019-04-26 02:47 | NUR ---
RESTING WITH EYES CLOSED, RESPERATIONS EVEN, NO S/S DISTRESS NOTED.
[2019-04-26 04:00] VITALS: BP 133/79
--- NOTE | 2019-04-26 06:50 | NUR ---
BEDSIDE SHIFT REPORT, PRE-OP MEDS GIVEN BY POLICE AIDE NURSE. PT A/O X4, RESP EVEN AND NONLABORED ON RA. RT WRIST DRESSING CDI, BRUISING NOTED. PT DENIES ANY NEEDS AT THIS TIME. FAMILY AT BEDSIDE, CALL LIGHT IN REACH.
--- NOTE | 2019-04-26 07:17 | NUR ---
PT TO GEOMORPHOLOGIST.
--- NOTE | 2019-04-26 08:12 | NUR ---
RECEIVED PT BACK TO ROOM 2131. PT STILL DROWSY BUT EASILY AROUSES TO VOICE. VITAL SIGNS STABLE, PLACED PT ON FREQUENT VITAL SIGNS. RT GROIN DRESSING CDI, NO S/S OF HEMATOMA OR BLEEDING NOTED. CALL LIGHT IN REACH, FAMILY AT BEDSIDE, NAD NOTED, WILL CONTINUE TO MONITOR.
--- NOTE | 2019-04-26 11:09 | NUR ---
NO CHANGES FROM PREVIOUS ASSESSMENT TO RT GROIN. PT RESTING COMFORTABLY IN BED, DENIES ANY NEEDS AT THIS TIME. CALL LIGHT IN REACH, NAD NOTED, WILL CONTINUE TO MONITOR.
--- NOTE | 2019-04-26 12:34 | NUR ---
PROVIDED VERBAL AND WRITTEN DISCHARGE TEACHING TO PT AND , BOTH VERBALIZED UNDERSTANDING REGARDING TEACHING. D/C LT AC IV WITH CATHETER TIP INTACT. 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 PT READY FOR WHEELCHAIR.
--- NOTE | 2019-04-27 08:15 | MORECARE ---
CASE MANAGEMENT DISCHARGE SUMMARY PATIENT: DENISE HUNG UNIT: [id number] ADM DATE: 04/25/19 AGE: 69 : [birth year] SEX: F ROOM/BED: D.2132 AUTHOR: LINCOLN,DOC PHYSICIAN: REFERRING PHYSICIAN: LEYLA BARBOSA MD DATE OF SERVICE: 04/27/19 Discharge Plan Patient Name: DENISE HUNG Facility: [facility]:[place] : 1950 Planned Disposition: Home Anticipated Discharge Date: 04/26/19 Discharge Date: 04/26/2019 Expected LOS: 1 Initial Reviewer: [email or web address] Initial Review Date: 04/25/2019 Generated: 04/27/19 9:15 am Comments DCP- Discharge Planning Updated by [email or web address]: Martín Loomis on 04/25/19 1:[address] Patient Name: DENISE HUNG Admission Status: ER Accout number: [id number] Admission Date: 04-25-2019 : 1950 Admission Diagnosis: Attending: BROOKE BARBOSA Current LOS: 1 Anticipated DC Date: 04-26-2019 Planned Disposition: Home Primary Insurance: [employer] [place] Discharge Planning Comments: CM MET WITH PT IN ROOM TO DISCUSS DISCHARGE PLANNING AND NEEDS. PT REPORTS LIVING AT HOME INDEPENDENTLY WITH HER SPOUSE. PT HAS NO MEDICAL EQUIPMENT AND NO OUTSIDE SERVICES ASSISTING IN THE HOME. CM DISCUSSED AVAILABILITY OF HOME HEALTH, REHAB SERVICES AND MEDICAL EQUIPMENT. PT DENIES DISCHARGE NEEDS, REPORTS HER SPOUSE WILL PICK HER UP FOR DISCHARGE HOME. PT PLANS TO DISCHARGE HOME WITH NO ANTICIPATED DISCHARGE NEEDS. CM TO FOLLOW AND ASSIST NEEDED. Manufacturing Area Manager: Martín Loomis DCPIA - Discharge Planning Initial Assessment Updated by [email or web address]: Martín Loomis on 04/25/19 2:14 pm * Is the patient Alert and Oriented? Yes * How many steps to enter\exit or inside your home? * PCP YOLANDA SHARIF * [facility] [place] * Preadmission Environment Home with Family * ADLs Independent * Equipment None * Other Equipment [facility] - PROVIDER PREFERENCE * List name and contact numbers for known caregivers / representatives who currently or will assist patient after discharge: SUNITHA HUNG, SPOUSE, * Verbal permission to speak to the caregivers and representatives has been obtained from the patient. Yes * Community resources currently utilized None * Please name any agencies selected above. NONE * Additional services required to return to the preadmission environment? No * Can the patient safely return to the preadmission environment? Yes * Has this patient been hospitalized within the prior 30 days at any hospital? No Last DP export: 04/25/19 1:23 p Patient Name: DENISE HUNG Page 00163 at 0815 All edits/amendments must be made on the electronic document DICTATION DATE: 04/27/19814 TEST ENGINE OPERATOR: JAZMYNE 04/27/19814 RPT#: [id number] DC DATE:04/26/19 STATUS: DIS IN [facility] [address] [place] [address] END OF REPORT
--- NOTE | 2019-04-28 16:48 | DS ---
PATIENT:DENISE HUNG :[birth year] MEDICAL RECORD: [id number] DISCHARGE SUMMARY ADMISSION DATE: 04/25/19 DISCHARGE DATE: 04/26/19 DATE OF DISCHARGE: 04/25/2019. DISCHARGE DIAGNOSES: 1. Non-Q-wave myocardial infarction. 2. PTCA and stent of LAD. 3. Hypertension. 4. Hyperlipidemia. HISTORY AND HOSPITAL COURSE: Ms. Hung presents with a non-Q-wave myocardial infarction, found to have significant disease of the LAD, underwent successful PTCA and stent of the LAD. Discharged home with the addition of aspirin, Plavix, Pravachol, Toprol to her medical regimen. She will follow up with [facility] in 1 month. TRANSINT:[id number] Voice Confirmation ID: [id number] DOCUMENT ID: [id number] LEYLA BARBOSA MD at 1648 CC: [id number] DICTATION DATE: 04/25/19 1005 LEATHER TOOLER: 04/25/19 1301 DIS IN 04/26/19 [id number] [place] [address]
--- NOTE | 2019-04-28 16:48 | EC ---
PATIENT:DENISE HUNG DATE OF SERVICE: 04/25/19 SEX: F MEDICAL RECORD: [id number] DATE OF : [birth year] LOCATION:D.M2 D.213 AGE OF PATIENT: 69 ADMISSION DATE: 04/25/19 REFERRING PHYSICIAN: INTERPRETING PHYSICIAN: LEYLA DANGELO MD ECHOCARDIOGRAM REPORT ECHO CHARGES 4 ECHO COMPLETE Date: 04/25/19 CLINICAL DIAGNOSIS: NV ECHOCARDIOGRAPHIC MEASUREMENTS (adult normal given) AC root (d.<3.7cm) 1.9 cm LV Septum d (<1.2 cm> 0.9 cm Valve Excursion 1.4 cm LV Septum (systole) 1.0 cm Left Atria (s.<4.0cm> 3.7 cm LVPW d(<1.2cm) 0.9 cm RV (d.<2.3cm) 3.2 cm LVPW (sytole) 1.2 cm LV diastole(<5.6CM) 5.4 cm MV E-F(>70mm/sec) cm LV systole 4.6 cm LVOT Diameter 1.7 cm MV exc.(>10mm) cm Est.ejection fraction (50-75%) % DOPPLER: LVIT cm/sec A 93 cm/sec E 53 cm/sec LA cm/sec RVSP 30.6 mmHg LVOT 84 cm/sec AOP1/2T m/s Asc. Ao 113 cm/sec RVOT cm/sec RA cm/sec PA cm/sec AV Gradient Peak 5.1 mmHg AV Mean 3.0 mmHg AV Area 1.6 cm MV Gradient Peak 6.1 mmHg MV Mean 3.1 mmHg MV Area cm COMMENTS: Cloth Checker: Tulio CAMARENA Database Marketing Specialist: 1 Dr. Dangelo TAPE# PACS Pericardial Effusion N DATE OF SERVICE: FINDINGS: 1. Left ventricular chamber size is within normal limits. Left ventricular systolic function is normal. Overall ejection fraction estimated at 50%. 2. Left atrium, right atrium, and right ventricular chamber sizes are within normal limits. 3. Valvular structures have normal structure and motion. 4. Doppler interrogation reveals mild mitral regurgitation, no other valvular insufficiency or stenosis. ECHOCARDIOGRAM REPORT [id number] DENISE HUNG 5. No evidence of pericardial effusion or left ventricular thrombus. TRANSINT:[id number] Voice Confirmation ID: [id number] DOCUMENT ID: [id number] LEYLA DANGELO MD at 1648 CC: [id number] DICTATION DATE: 04/25/19 1355 CAREER COORDINATOR: 04/25/19 1425 DIS IN 04/26/19 [address] [place] [address]
--- NOTE | 2019-04-28 16:48 | OP ---
PATIENT NAME: DENISE HUNG MEDICAL RECORD: [id number] :48 LOCATION:D.M2 D.2132 ADMISSION DATE:04/25/19 SURGEON: LEYLA BARBOSA MD DATE OF OPERATION: 04/25/2019 PROCEDURES: 1. PTCA stent LAD. 2. IFR. 3. Left heart catheterization. 4. Selective coronary angiography. 5. Left ventriculogram. INDICATION: Angina, non-Q-wave myocardial infarction and coronary artery disease. DESCRIPTION OF PROCEDURE: After informed consent was obtained and after detailed description of risks, benefits as well as alternative therapies, the patient elected to proceed with angiogram and angioplasty. The right radial area was prepped, draped in normal sterile fashion. Right radial artery was cannulated via modified Seldinger technique with placement of 6-Divehi sheath. All catheters exchanged through this sheath. FINDINGS: Left ventriculogram was performed in standard 30-degree ZAVALA view, reveals good cardiac wall motion, ejection fraction 50% to 55%. SELECTIVE CORONARY ANGIOGRAPHY: 1. Left main is with no significant angiographic disease. 2. Left anterior descending has 80% stenosis in the mid vessel. An IFR was abnormal. 3. Left circumflex has mild irregularities, but no flow-limiting stenosis. 4. The right coronary has [id number] irregularities, but no flow-limiting stenosis. PTCA STENT OF THE LAD: The stent used was a 2.75 x 18 mm Mahendra. Result was 0% residual stenosis. OVERALL IMPRESSION: Successful percutaneous transluminal coronary angioplasty stent of the left anterior descending going from 80% initial stenosis to 0% residual. TRANSINT:[id number] Voice Confirmation ID: [id number] DOCUMENT ID: [id number] LEYLA BARBOSA MD at 1648 CC: [id number] DICTATION DATE: 04/25/19 1007 [employer] CONSULTANT: 04/25/19 1306 DIS IN 04/26/19 [id number] [place] [address]
--- NOTE | 2019-04-28 16:48 | OP ---
PATIENT NAME: DENISE HUNG MEDICAL RECORD: [id number] :48 LOCATION:D.M2 D.2132 ADMISSION DATE:04/25/19 SURGEON: LEYLA BARBOSA MD DATE OF OPERATION: 04/26/2019 PROCEDURES: 1. PTCA stent LAD. 2. PTCA stent RCA. 3. IFR. 4. Selective coronary angiography. INDICATION: Recent myocardial infarction. PTCA stent of the LAD yesterday with continued pain. At the end of yesterday's case, the room went went down. Hence, no final pictures could be taken. With relooking at the LAD today, there is greater than 70% stenosis remaining before the stent. We stented this with a 3.5 x 8 mm Tarzan. Result was 0% residual stenosis. There was a questionable 70% hazy stenosis of the RCA, we performed IFR. IFR was abnormal. We stented the RCA with a 3.0 x 18 mm Tarzan. Result was 0% residual stenosis. OVERALL IMPRESSION: Successful percutaneous transluminal coronary angioplasty stent of the left anterior descending and right coronary artery, both going from 70% initial stenosis to 0% residual. TRANSINT:[id number] Voice Confirmation ID: [id number] DOCUMENT ID: [id number] LEYLA BARBOSA MD at 1648 CC: [id number] DICTATION DATE: 04/26/19 0749 CATERPILLAR DRIVER: 04/26/19 0939 DIS IN 04/26/19 [facility] [address] [id number]
== END 2019-04-26 12:55 | disposition home or self-care (01) | DRG 247 ==
LOC: D.ER 00:12 → D.M2 02:01
PROVIDERS: Family Medicine; ADMIT Internal Medicine Interventional Cardiology; ATTEND Internal Medicine Interventional Cardiology
PROC: 027034Z Dilation of Coronary Artery, One Artery with Drug-eluting Intraluminal Device, Percutaneous Approach (ICD-10-PCS; principal; 2019-04-25)
PROC: 4A023N7 Measurement of Cardiac Sampling and Pressure, Left Heart, Percutaneous Approach (ICD-10-PCS; 2019-04-25)
PROC: B2111ZZ Fluoroscopy of Multiple Coronary Arteries using Low Osmolar Contrast (ICD-10-PCS; 2019-04-25)
PROC: B2151ZZ Fluoroscopy of Left Heart using Low Osmolar Contrast (ICD-10-PCS; 2019-04-25)
PROC: 027135Z Dilation of Coronary Artery, Two Arteries with Two Drug-eluting Intraluminal Devices, Percutaneous Approach (ICD-10-PCS; 2019-04-26)
PROC: 3E073GC Introduction of Other Therapeutic Substance into Coronary Artery, Percutaneous Approach (ICD-10-PCS; 2019-04-26)
DX: I21.4 Non-ST elevation (NSTEMI) myocardial infarction (principal); I10 Essential (primary) hypertension; E78.5 Hyperlipidemia, unspecified; I25.119 Atherosclerotic heart disease of native coronary artery with unspecified angina pectoris